=== PATIENT | female | born 1975 | race Hispanic/Latino ===

== ENCOUNTER 2021-10-13 05:30 | Outpatient (RCR) | payer SELFPAY ==
[~2021-10-13] VITALS: Ht 154.9 cm; Wt 62.8 kg
[~2021-10-13 05:30] MED LIST: LINA145C PO; PANT40TA52 PO
== END 2021-10-13 11:59 | disposition home or self-care (01) ==
LOC: PREOP 05:30
PROVIDERS: ATTEND Surgery
DX: Z01.812 Encounter for preprocedural laboratory examination (principal); K92.1 Melena; R10.13 Epigastric pain; Z20.822 Contact with and (suspected) exposure to COVID-19
CPT/HCPCS: 87635